=== PATIENT | female | born 1945 | race Hispanic/Latino ===

== ENCOUNTER 2016-11-08 10:55 | Day surgery (SDC) | payer MEDICARE, OTHER ==
[~2016-11-08 10:55] MED LIST: GONAK OD ONE; IOPIDINE OD ONE; ISOPTO CARPINE OD ONE; TETRACAINE 0.5% OD ONE
[2016-11-08] MEDS ORDERED: IOPIDINE ONE (11:50)
[2016-11-08] MEDS ORDERED: MYDRIACYL ONE (11:50)
[2016-11-08] MEDS ORDERED: NEOFRIN ONE (11:50)
[2016-11-08] MEDS ORDERED: ISOPTO CARPINE ONE (11:59)
[2016-11-08] MEDS ORDERED: GONAK ONE (11:59)
[2016-11-08] MEDS ORDERED: TETRACAINE 0.5% ONE (11:59)
== END 2016-11-08 10:56 | disposition home or self-care (01) ==
LOC: OR 10:55
PROVIDERS: ATTEND Ophthalmology
DX: H40.20X0 Unspecified primary angle-closure glaucoma, stage unspecified (principal)

== ENCOUNTER 2016-11-15 10:52 | Day surgery (SDC) | payer MEDICARE, OTHER ==
[2016-11-15] MEDS ORDERED: ISOPTO CARPINE ONE ×2 (11:10→11:34)
[2016-11-15] MEDS ORDERED: TETRACAINE 0.5% ONE (11:10)
[2016-11-15] MEDS ORDERED: IOPIDINE ONE (11:10)
[2016-11-15 11:23] VITALS: BP 138/74
[2016-11-15] MEDS ORDERED: GONAK ONE (11:37)
[2016-11-15] MEDS ORDERED: ISOPTO TEARS 0.5% ONE (11:38)
[2016-11-15] MEDS ORDERED: IOPIDINE OS ONE ×2 (12:19)
[2016-11-15] MEDS ORDERED: ISOPTO CARPINE OS ONE ×2 (12:19)
[2016-11-15] MEDS ORDERED: TETRACAINE 0.5% OS ONE (12:21)
[2016-11-15] MEDS ORDERED: GONAK OS ONE ×2 (12:25)
[2016-11-15] MEDS ORDERED: GONAK TP ONE (12:25)
== END 2016-11-15 12:50 | disposition home or self-care (01) ==
LOC: OR 10:52
PROVIDERS: ATTEND Ophthalmology
DX: H40.20X0 Unspecified primary angle-closure glaucoma, stage unspecified (principal)

== ENCOUNTER 2019-01-29 13:05 | Outpatient (CLI) | payer MEDICARE, OTHER ==
--- NOTE | 2019-01-29 16:21 | Mammography Report ---
DIGITAL SCREENING MAMMOGRAM WITH CAD, 01/29/2019 INDICATION: Routine screening mammography. TECHNIQUE: Digital bilateral 2D mammography was obtained in the craniocaudal and mediolateral obliq ue projections. This examination was interpreted with the benefit of Computer-Aided Detection analysi s. COMPARISON: 01/05/2018 FINDINGS: Breast Density: The breasts are mostly fatty with a few bilateral residual retroareolar fibroglandula r densities. There is no evidence of dominant mass, suspicious calcifications or architectural distortion in eithe r breast. IMPRESSION: No mammographic evidence of malignancy. Follow up recommendation: Routine yearly BI-RADS Category 1: Negative. A "normal" or negative report should not discourage follow up or biopsy of a clinically significant f inding. A written summary of these findings will be mailed to the patient. The patient will be entered into a mammography reporting system which will generate a reminder letter for the patient's next appointmen t at the appropriate interval. The [employer] recommends yearly mammograms starting at age 40 and continuing as l zhou as a woman is in good health. Breast MRI is recommended for women with an approximate 20-25% or greater lifetime risk of breast cancer, including women with a strong family history of breast or ova matias cancer or who have been treated for Hodgkin's disease. Signer Name: Shlomo Carter MD Signed: 01/29/2019 4:16 PM Workstation Name: [id number]
== END 2019-01-29 13:06 | disposition home or self-care (01) ==
LOC: SPVWC 13:05
PROVIDERS: ATTEND Family Medicine
DX: Z12.31 Encounter for screening mammogram for malignant neoplasm of breast (principal)
CPT/HCPCS: 77067